=== PATIENT | female | born 1980 | race African-American/Black ===

== ENCOUNTER 2017-06-16 08:44 | Emergency (ER) | payer SELFPAY ==
[~2017-06-16] VITALS: Ht 160 cm; Wt 59.0 kg
[~2017-06-16 08:44] MED LIST: ERYT333T19 PO; TRAM50 PO
[2017-06-16 08:46] VITALS: BP 113/69; PULSE 100; RESP 14; TEMP 98.5; O2SAT 100
[2017-06-16] MEDS ORDERED: ALBU0.08 NEB (10:39)
[2017-06-16] MEDS ORDERED: ZITHTAB PO (10:39)
[2017-06-16] MEDS ORDERED: PRED20 PO (10:39)
--- NOTE | 2017-06-16 10:39 | PD ---
HPI Chief Complaint: ENT Complaint Time Seen by Provider: 10:21 Travel History International Travel<30 days: No Contact w/Intl Traveler<30days: No Traveled to known affect area: No History of Present Illness HPI The patient is a 37-year-old [place] female who presents to the emergency department for cough and cold symptoms of 2 days' duration. The patient complains of postnasal drip, sore throat, laryngitis, anterior cervical lymphadenopathy, and occasionally productive cough. She also complains of wheezing, has a history of asthma and reactive airway disease. The patient has been using her inhaler at home, however, ran out of nebulizers. She does note mild wheezing and chest tightness but denies any swelling to lower extremities. She does note intermittent chills and sweats without a measurable fever. Symptoms are mild to moderate without any alleviating or exacerbating factors. PFSH Past Medical History Asthma: Yes Diminished Hearing: No Musculoskeletal: Yes (CHRONIC NECK PAIN) Respiratory: Yes (ASTHMA) ?: Not : 5 Para: 3 Ectopic : Yes (RIGHT) Past Surgical History Cholecystectomy: Yes Gynecologic Surgery: Yes (ECTOPIC) Social History Alcohol Use: No Tobacco Use: Yes (12PPD) Substance Use: No Allergies-Medications (Allergen,Severity, Reaction): Coded Allergies: penicillin G (Unverified Allergy, Severe, RASH, ITCHING, 06/16/17) Reported Meds & Prescriptions Reported Meds & Active Scripts Active Ultram (Tramadol HCl) 50 Mg Tab 1 Tab PO Q6HPRN FOR PAIN Galileo-Tab (Erythromycin) 333 Mg Tabec 333 Mg PO TID Review of Systems Except as stated in HPI: all other systems reviewed are Neg General / Constitutional: Positive: Chills, No: Fever HENT: Positive: Sore Throat, Congestion Cardiovascular: Positive: Chest Pain or Discomfort (tightness) Respiratory: Positive: Cough, Wheezing Gastrointestinal: No: Nausea, Vomiting, Abdominal Pain Musculoskeletal: No: Myalgias, Arthralgias, Edema Physical Exam Narrative GENERAL: Awake, alert, pleasant 37-year-old female who appears her stated age and is in no acute respiratory distress. SKIN: Focused skin assessment warm/dry. HEAD: Atraumatic. Normocephalic. EYES: Pupils equal and round. No scleral icterus. No injection or drainage. ENT: No nasal bleeding or discharge. Mucous membranes pink and moist. Oropharynx reveals cobblestoning. Upper dentures in place. TMs translucent. EACs are clear. NECK: Trachea midline. No JVD. Bilateral shoddy cervical lymphadenopathy which is mobile and tender. CARDIOVASCULAR: Regular rate and rhythm. No murmur appreciated. RESPIRATORY: No accessory muscle use. Few scattered wheezes. GASTROINTESTINAL: Abdomen soft, non-tender, nondistended. MUSCULOSKELETAL: No obvious deformities. No clubbing. No cyanosis. No edema. NEUROLOGICAL: Awake and alert. No obvious cranial nerve deficits. Motor grossly within normal limits. Normal speech. PSYCHIATRIC: Appropriate mood and affect; insight and judgment normal. Data Data Last Documented VS Vital Signs Date Time Temp Pulse Resp B/P (MAP) Pulse Ox O2 Delivery O2 Flow Rate FiO2 06/16/17 08:46 98.5 100 14 113/69 (84) 100 Orders Orders Group A Rapid Strep Screen (06/16/17 08:58) Influenzae A/B Antigen (06/16/17 08:58) Strep Culture (Group A) (06/16/17 09:00) MDM Medical Decision Making Medical Screen Exam Complete: Yes Emergency Medical Condition: Yes Medical Record Reviewed: Yes Interpretation(s) Date/Time Source Procedure Growth Status 06/16/17 09:00 Throat Group A Streptococcus Screen Pending Received 06/16/17 09:00 Throat Group A Streptococcus Screen (JOY) - Final Complete 06/16/17 09:00 Nasal Aspirate Influenza Types A,B Antigen (JOY) - Final NEGATIVE FOR FLU A AND B ANTIGEN.... Complete Differential Diagnosis Differential diagnosis includes reactive airway disease, bronchitis, URI, influenza, viral syndrome, pneumonia, pharyngitis, strep pharyngitis. Narrative Course The patient's influenza screen was negative. Strep screen was negative, these were performed in triage. Patient appears to have a URI with secondary reactive airway disease. The patient will be placed on steroids and albuterol nebulizer, will be provided Zithromax for atypical coverage. She is advised to follow-up with her primary physician. Return if symptoms worsen or progress. Diagnosis Primary Impression: Bronchitis Patient Instructions: General Instructions Additional Instructions: Medications as directed. Follow-up with your primary physician. Return if symptoms worsen or progress. Stop smoking. Med/Other Pt SpecificInfo: Prescription(s) given Scripts Azithromycin (Zithromax Z-Saeid) 250 Mg Dspk 250 MG PO DIRECTED for Infection, #1 DSPK 0 Refills 500 MG (2 tabs) day 1, then 1 tab days 2-5. Prov: Aditya Roy MD 06/16/17 Albuterol Neb (Albuterol Neb) 2.5 Mg/3 Ml Neb 2.5 MG NEB Q4HR NEB Y for SHORTNESS OF BREATH, #60 NEBULE 0 Refills Prov: Aditya Roy MD 06/16/17 Prednisone (Prednisone) 20 Mg Tab 40 MG PO DIRECTED for 5 Days, TAB 0 Refills Prov: Aditya Roy MD 06/16/17 Disposition: 01 DISCHARGE HOME Condition: Stable Aditya Roy MD Jun 16, 2017 10:39
== END 2017-06-16 11:28 | disposition home or self-care (01) ==
LOC: NEPD 08:44
DX: J40 Bronchitis, not specified as acute or chronic (principal); J45.909 Unspecified asthma, uncomplicated; R59.1 Generalized enlarged lymph nodes; F17.200 Nicotine dependence, unspecified, uncomplicated; Z88.0 Allergy status to penicillin
CPT/HCPCS: 87081; 87804; 87880; 99284